=== PATIENT | female | born 1975 | race Caucasian/White ===

== ENCOUNTER → 2021-10-07 | Outpatient (CLI) | payer BC | END | disposition home or self-care (01) | LOC: RAH 14:32 | PROVIDERS: ATTEND Student in an Organized Health Care Education/Training Program | DX: R10.30 Lower abdominal pain, unspecified (principal) | CPT/HCPCS: 76882 ==

== ENCOUNTER 2021-11-24 07:26 | Inpatient (IN) | payer BC ==
[2021-11-18 11:48] LABS: BASOPHILS % (AUTO) 1.1 % (0.0-5.0); EOSINOPHILS % (AUTO) 1.3 % (0.0-8.0); HEMATOCRIT 30.4 % (36-48); LYMPHOCYTES % (AUTO) 40.8 % (21.0-51.0); MEAN CORPUSCULAR HEMOGLOBIN 23.1 pg (27.0-33.0); MEAN CORPUSCULAR HGB CONC 29.6 g/dL (32.0-36.0); MEAN CORPUSCULAR VOLUME 77.9 fL (79-99); MONOCYTES % (AUTO) 11.3 % (3.0-13.0); NEUTROPHILS % (AUTO) 45.3 % (40.0-77.0); PLATELET COUNT (AUTO) 406 K/uL (130-400); RED CELL DISTRIBUTION WIDTH 15.9 % (11.0-15.5); WHITE BLOOD COUNT (AUTO) 5.2 K/uL (4.8-10.8)
[2021-11-18 12:02] LABS: INR 2.08 (0.85-1.15); PROTHROMBIN TIME 21.2 SEC (9.6-11.6)
[2021-11-18 12:03] LABS: PARTIAL THROMBOPLASTIN TIME 32.6 SEC (26.3-35.5)
[2021-11-18 12:05] LABS: ALBUMIN 3.9 g/dL (3.5-5.0); BILIRUBIN,TOTAL 0.3 mg/dL (0.2-1.0); CREATININE 0.5 mg/dL (0.5-1.5); POTASSIUM 4.2 mmol/L (3.5-5.1)
[2021-11-24] VITALS (27 sets, daily range): BP systolic 114–157; BP diastolic 48–97
[~2021-11-24] VITALS: Ht 165.1 cm; Wt 50.9 kg
[2021-11-24] MEDS: CEFAZOLIN SODIUM 1 GM VIAL IVP SCH ×2 (06:00→13:00)
[~2021-11-24 07:26] MED LIST: 0.9% NACL 500ML IV.SOLN 500 ML IV SCH; ENOX80DI8 SQ; WARF-57 PO
[2021-11-24] MEDS ORDERED: LACTATED RINGERS 1000ML 1,000 ML IV ONE (08:35)
[2021-11-24 10:54] LABS: INR 1.05 (0.85-1.15); PROTHROMBIN TIME 11.4 SEC (9.6-11.6)
[2021-11-24 10:56] LABS: PARTIAL THROMBOPLASTIN TIME 25.2 SEC (26.3-35.5)
[2021-11-24] MEDS ORDERED: LIDOCAINE PF 100MG/5ML (2%) SYRINGE 5ML ONE (12:34)
[2021-11-24] MEDS ORDERED: SUCCINYLCHOLINE CHLORIDE 20 MG/ML 10 ML VIAL ONE (12:34)
[2021-11-24] MEDS ORDERED: MIDAZOLAM HCL 1 MG/ML 2ML VIAL ONE (12:35)
[2021-11-24] MEDS ORDERED: FENTANYL CITRATE PF 50 MCG/1 ML 2ML VIAL ONE ×2 (12:35→14:09)
[2021-11-24] MEDS ORDERED: ROCURONIUM 10MG/1ML SYR 10 MG/ML ML ONE ×2 (12:35→14:21)
[2021-11-24] MEDS ORDERED: PROPOFOL 10 MG/ML 20ML VIAL IV ONE (12:35)
[2021-11-24] MEDS ORDERED: LIDOCAINE HCL 2% PF 20 ML JEL DISP.SYRIN MM ONE (13:32)
[2021-11-24] MEDS ORDERED: BACITRACIN 28.4 GM OINT TP ONE (13:36)
[2021-11-24] MEDS ORDERED: GLYCOPYRROLATE 1 MG/5 ML SYRINGE ONE ×3 (13:52→16:39)
[2021-11-24] MEDS ORDERED: METHYLENE BLUE 5 MG/ML AMP ONE (14:48)
[2021-11-24] MEDS ORDERED: NEOSTIGMINE 5MG/5ML SYR IV ONE (16:07)
[2021-11-24] MEDS ORDERED: MEPERIDINE-PF 25 MG/ML SYG ONE ×2 (16:22→17:16)
[2021-11-24] MEDS ORDERED: IBUPROFEN 600 MG TABLET PO PRN (16:30)
[2021-11-24] MEDS ORDERED: ACETAMINOPHEN WITH CODEINE 1 TAB TAB PO PRN (16:30)
[2021-11-24] MEDS ORDERED: BISACODYL 10 MG SUPP.RECT RC PRN (16:30)
[2021-11-24] MEDS ORDERED: PROMETHAZINE HCL 25 MG/ML 1ML AMPULE IM PRN (16:30)
[2021-11-24] MEDS ORDERED: DOCUSATE SODIUM 100 MG CAP PO PRN (16:30)
[2021-11-24] MEDS ORDERED: ONDANSETRON 4MG INJ ONE ×2 (17:15→18:19)
[2021-11-24] MEDS ORDERED: KETOROLAC 30MG VIAL (30MG/ML) ONE (17:16)
[2021-11-24] MEDS: DEXTROSE 5 %-0.45 % NACL 1,000 ML IV PRN (18:30)
[2021-11-24] MEDS: MEPERIDINE-PF 75 MG/ML SYG IM PRN (19:13)
[2021-11-24] MEDS ORDERED: DOCUSATE SODIUM 100 MG CAP PO SCH ×2 (21:00→23:00)
[2021-11-24] MEDS: LIDOCAINE HCL 5% OINT 50GM 1 APPL/GM TUBE TP SCH (21:25)
[2021-11-24] MEDS: BACITRACIN 28.4 GM OINT TP SCH (21:25)
[2021-11-25] MEDS: PROMETHAZINE HCL 25 MG/ML 1ML AMPULE IM PRN ×2 (02:20→10:12)
[2021-11-25] MEDS: DEXTROSE 5 %-0.45 % NACL 1,000 ML IV PRN ×3 (02:21→18:47)
[2021-11-25] MEDS: MEPERIDINE-PF 75 MG/ML SYG IM PRN ×2 (02:21→10:13)
[2021-11-25 03:04] VITALS: BP 133/78
[2021-11-25 06:49] LABS: HEMATOCRIT 26.6 % (36-48); MEAN CORPUSCULAR HEMOGLOBIN 22.3 pg (27.0-33.0); MEAN CORPUSCULAR HGB CONC 28.6 g/dL (32.0-36.0); RED BLOOD CELL COUNT(AUTO) 3.41 MIL/uL (4.00-5.50); RED CELL DISTRIBUTION WIDTH 15.3 % (11.0-15.5); WHITE BLOOD COUNT (AUTO) 11.9 K/uL (4.8-10.8)
[2021-11-25 07:03] VITALS: BP 129/77
[2021-11-25] MEDS: DOCUSATE SODIUM 100 MG CAP PO SCH ×3 (10:12→21:47)
[2021-11-25] MEDS: LIDOCAINE HCL 5% OINT 50GM 1 APPL/GM TUBE TP SCH ×3 (10:13→21:52)
[2021-11-25] MEDS: BACITRACIN 28.4 GM OINT TP SCH ×3 (10:14→21:54)
[2021-11-25 11:50] VITALS: BP 113/66
[2021-11-25 15:40] VITALS: BP 98/66
[2021-11-25] MEDS ORDERED: ONDANSETRON 4MG INJ IVP PRN (16:00)
[2021-11-25] MEDS ORDERED: ACETAMINOPHEN WITH CODEINE 1 TAB TAB PO PRN (17:00)
[2021-11-25] MEDS: HYDROCODONE/ACETAMINOPHEN 5/325 MG TAB PO PRN ×2 (17:48→23:24)
[2021-11-25 19:56] VITALS: BP 113/69
[2021-11-25] MEDS: SIMETHICONE 80 MG TAB.CHEW PO PRN (21:47)
[2021-11-25 23:08] VITALS: BP 115/61
[2021-11-26 03:25] VITALS: BP 109/66
[2021-11-26] MEDS: HYDROCODONE/ACETAMINOPHEN 5/325 MG TAB PO PRN ×4 (06:53→23:12)
[2021-11-26 06:58] VITALS: BP 126/76
[2021-11-26 07:54] LABS: HEMATOCRIT 24.2 % (36-48); MEAN CORPUSCULAR HGB CONC 29.3 g/dL (32.0-36.0); MEAN CORPUSCULAR VOLUME 78.3 fL (79-99); PLATELET COUNT (AUTO) 306 K/uL (130-400); RED BLOOD CELL COUNT(AUTO) 3.09 MIL/uL (4.00-5.50); RED CELL DISTRIBUTION WIDTH 15.9 % (11.0-15.5); WHITE BLOOD COUNT (AUTO) 11.2 K/uL (4.8-10.8)
[2021-11-26 08:04] LABS: INR 1.13 (0.85-1.15); PROTHROMBIN TIME 12.2 SEC (9.6-11.6)
[2021-11-26] MEDS: DOCUSATE SODIUM 100 MG CAP PO SCH ×3 (09:44→21:03)
[2021-11-26] MEDS: LIDOCAINE HCL 5% OINT 50GM 1 APPL/GM TUBE TP SCH ×3 (09:45→21:03)
[2021-11-26] MEDS: BACITRACIN 28.4 GM OINT TP SCH ×3 (09:46→21:03)
[2021-11-26 11:22] VITALS: BP 124/72
[2021-11-26] MEDS ORDERED: WARFARIN SODIUM 5 MG TAB PO SCH (13:00)
[2021-11-26] MEDS ORDERED: ENOXAPARIN SODIUM 60 MG/0.6 ML SQ SCH ×2 (13:00→21:00)
[2021-11-26 13:45] VITALS: BP 108/68
[2021-11-26 19:17] VITALS: BP 117/71
[2021-11-26 23:08] VITALS: BP 113/76
[2021-11-26] MEDS: ENOXAPARIN SODIUM 60 MG/0.6 ML SQ SCH (23:12)
[2021-11-27 03:05] VITALS: BP 113/66
[2021-11-27] MEDS: HYDROCODONE/ACETAMINOPHEN 5/325 MG TAB PO PRN ×4 (03:18→21:39)
[2021-11-27 05:02] LABS: INR 1.18 (0.85-1.15); PROTHROMBIN TIME 12.7 SEC (9.6-11.6)
[2021-11-27 08:18] VITALS: BP 104/67
[2021-11-27] MEDS: DOCUSATE SODIUM 100 MG CAP PO SCH ×3 (08:48→21:25)
[2021-11-27] MEDS: ENOXAPARIN SODIUM 60 MG/0.6 ML SQ SCH ×2 (08:48→21:24)
[2021-11-27] MEDS: BACITRACIN 28.4 GM OINT TP SCH ×3 (08:49→21:31)
[2021-11-27] MEDS: LIDOCAINE HCL 5% OINT 50GM 1 APPL/GM TUBE TP SCH ×3 (08:49→21:31)
[2021-11-27 11:15] VITALS: BP 94/57
[2021-11-27 14:00] LABS: MEAN CORPUSCULAR HEMOGLOBIN 22.9 pg (27.0-33.0); MEAN CORPUSCULAR HGB CONC 27.9 g/dL (32.0-36.0); MEAN CORPUSCULAR VOLUME 82.2 fL (79-99); RED BLOOD CELL COUNT(AUTO) 2.92 MIL/uL (4.00-5.50); RED CELL DISTRIBUTION WIDTH 16.1 % (11.0-15.5); WHITE BLOOD COUNT (AUTO) 8.2 K/uL (4.8-10.8)
[2021-11-27 14:54] LABS: HEMATOCRIT 23.6 % (36-48); MEAN CORPUSCULAR HEMOGLOBIN 23.2 pg (27.0-33.0); MEAN CORPUSCULAR HGB CONC 29.2 g/dL (32.0-36.0); MEAN CORPUSCULAR VOLUME 79.2 fL (79-99); RED BLOOD CELL COUNT(AUTO) 2.98 MIL/uL (4.00-5.50); RED CELL DISTRIBUTION WIDTH 15.9 % (11.0-15.5); WHITE BLOOD COUNT (AUTO) 6.7 K/uL (4.8-10.8)
[2021-11-27 15:08] VITALS: BP 122/75
[2021-11-27] MEDS: WARFARIN SODIUM 5 MG TAB PO SCH (15:08)
[2021-11-27 15:28] LABS: % IRON SATURATION 3.4 % (22-44)
[2021-11-27] MEDS ORDERED: IRON SUCROSE COMPLEX 100 MG in 0.9%NACL 50ML 50 ML IV SCH (16:00)
[2021-11-27] MEDS ORDERED: IRON SUCROSE COMPLEX 100 MG/5 ML VIAL IVP SCH (16:00)
[2021-11-27 20:13] VITALS: BP 107/64
[2021-11-27] MEDS: SIMETHICONE 80 MG TAB.CHEW PO PRN (21:20)
[2021-11-27 23:50] VITALS: BP 99/58
[2021-11-28 04:25] VITALS: BP 104/61
[2021-11-28 05:41] LABS: INR 1.48 (0.85-1.15); PROTHROMBIN TIME 15.6 SEC (9.6-11.6)
[2021-11-28 06:14] LABS: HEMATOCRIT 22.9 % (36-48); MEAN CORPUSCULAR HEMOGLOBIN 22.9 pg (27.0-33.0); MEAN CORPUSCULAR HGB CONC 28.8 g/dL (32.0-36.0); MEAN CORPUSCULAR VOLUME 79.5 fL (79-99); RED BLOOD CELL COUNT(AUTO) 2.88 MIL/uL (4.00-5.50); RED CELL DISTRIBUTION WIDTH 15.9 % (11.0-15.5); WHITE BLOOD COUNT (AUTO) 5.6 K/uL (4.8-10.8)
[2021-11-28] MEDS: HYDROCODONE/ACETAMINOPHEN 5/325 MG TAB PO PRN (06:41)
[2021-11-28] MEDS ORDERED: IRON SUCROSE COMPLEX 100 MG in 0.9%NACL 50ML 50 ML IV SCH (07:30)
[2021-11-28] MEDS ORDERED: IRON SUCROSE COMPLEX 100 MG/5 ML VIAL IVP SCH ×2 (07:30→08:30)
[2021-11-28 08:00] VITALS: BP 106/64
[2021-11-28] MEDS: ENOXAPARIN SODIUM 60 MG/0.6 ML SQ SCH (08:43)
[2021-11-28] MEDS: DOCUSATE SODIUM 100 MG CAP PO SCH ×2 (09:42→14:27)
[2021-11-28] MEDS: LIDOCAINE HCL 5% OINT 50GM 1 APPL/GM TUBE TP SCH ×2 (09:42→14:27)
[2021-11-28] MEDS: BACITRACIN 28.4 GM OINT TP SCH ×2 (09:43→14:27)
[2021-11-28 12:00] VITALS: BP 119/69
[2021-11-28] MEDS ORDERED: ENOX80DI8 SQ (13:38)
[2021-11-28] MEDS ORDERED: DOCU-116 PO (13:41)
[2021-11-28] MEDS ORDERED: LIDOCAINE 5% OINT RC (13:45)
[2021-11-28] MEDS: WARFARIN SODIUM 5 MG TAB PO SCH (14:26)
== END 2021-11-28 13:45 | disposition home or self-care (01) | DRG 742 ==
LOC: DAHIP 07:26 → WSH 18:19
PROVIDERS: ADMIT Specialist; ATTEND Student in an Organized Health Care Education/Training Program
PROC: 0UB70ZZ Excision of Bilateral Fallopian Tubes, Open Approach (ICD-10-PCS; 2021-11-24)
PROC: 06BY0ZC Excision of Hemorrhoidal Plexus, Open Approach (ICD-10-PCS; 2021-11-24)
PROC: 0UT90ZZ Resection of Uterus, Open Approach (ICD-10-PCS; principal; 2021-11-24 11:30)
PROC: 0UB00ZZ Excision of Right Ovary, Open Approach (ICD-10-PCS; 2021-11-24 11:30)
DX: D27.0 Benign neoplasm of right ovary (principal); D68.51 Activated protein C resistance; K64.4 Residual hemorrhoidal skin tags; K66.0 Peritoneal adhesions (postprocedural) (postinfection); D50.0 Iron deficiency anemia secondary to blood loss (chronic); Z20.822 Contact with and (suspected) exposure to COVID-19; N83.9 Noninflammatory disorder of ovary, fallopian tube and broad ligament, unspecified; Z79.01 Long term (current) use of anticoagulants; Z86.73 Personal history of transient ischemic attack (TIA), and cerebral infarction without residual deficits
CPT/HCPCS: 36415; 80053; 82728; 83540; 83550; 84703; 85025; 85027; 85610; 85730; 86850; 86900; 86901; 87635; A4344; G0378; J0330; J0690; J1650; J1756; J1885; J2001; J2175; J2250; J2405; J2550; J2704; J2710; J3010; J3490; J7030; J7040; J7120; Q9968